=== PATIENT | male | born 1975 | race Native Hawaiian/Other Pacific Islander ===

== ENCOUNTER 2019-07-25 08:13 | Day surgery (SDC) | payer OTHER ==
[~2019-07-25] VITALS: Ht 30.5 cm; Wt 0.5 kg
[2019-07-25 08:50] LABS: PLATELET COUNT 172 K/uL (142-355)
[2019-07-25 08:55] LABS: POTASSIUM 3.8 mmol/L (3.6-5.2)
== END 2019-07-25 15:45 | disposition home or self-care (01) ==
LOC: OR 08:13
PROVIDERS: Student in an Organized Health Care Education/Training Program
PROC: 0WUF0JZ Supplement Abdominal Wall with Synthetic Substitute, Open Approach (ICD-10-PCS; principal; 2019-07-25)
DX: K42.0 Umbilical hernia with obstruction, without gangrene (principal)
CPT/HCPCS: 80053; 85027; C1781; J0132; J0330; J0690; J1100; J1170; J1885; J2001; J2250; J2405; J2704; J2710; J2765; J3010; J3490